=== PATIENT | female | born 1940 | race American Indian/Alaskan Native ===

== ENCOUNTER 2017-07-02 08:13 | Day surgery (SDC) | payer MEDICARE, MEDICAID ==
[2017-07-02] MEDS ORDERED: Lactated Ringer's 1,000 ML IV ONE (08:36)
[2017-07-02] MEDS ORDERED: Propofol 10 mg/ml Inj (20 ML) ONE (10:26)
[2017-07-02] MEDS ORDERED: Lidocaine 2% MPF (5 ml) Inj ONE (10:26)
[2017-07-02 10:59] VITALS: RESP 15; O2SAT 100
[2017-07-02 11:12] VITALS: BP 136/66; PULSE 72; TEMP 97.2
== END 2017-07-02 12:28 | disposition home or self-care (01) ==
LOC: H.ENDO 08:13
PROVIDERS: ATTEND Internal Medicine Gastroenterology
DX: Z12.11 Encounter for screening for malignant neoplasm of colon (principal); E78.5 Hyperlipidemia, unspecified; I10 Essential (primary) hypertension
CPT/HCPCS: G0121; J2704; J7120